=== PATIENT | female | born 1955 | race Caucasian/White ===

== ENCOUNTER 2024-08-05 11:33 | Outpatient (CLI) | payer MEDICARE, OTHER ==
[2024-08-05] MEDS ORDERED: barium sulfate 340gm for oral suspension 1 BOTTLE SUSP.RECON PO ONE (14:00)
== END 2024-08-05 23:59 | disposition home or self-care (01) ==
LOC: RAD 11:33
PROVIDERS: ATTEND Surgery
DX: K44.9 Diaphragmatic hernia without obstruction or gangrene (principal); K21.9 Gastro-esophageal reflux disease without esophagitis; R13.10 Dysphagia, unspecified
CPT/HCPCS: 74220

== ENCOUNTER 2024-10-21 06:53 | Day surgery (SDC) | payer MEDICARE, OTHER ==
[~2024-10-21 06:53] MED LIST: ALPH600C3 PO; CHOL10CA2 PO; CYAN250010 PO; LOSA25TA41 PO; METO-384 PO; OMEP20CA16 PO; QUET50TA24 PO; ROSU20TA98; ROSU40TA89 PO; TIRZ5PEN; UBID10CA4 PO
[2024-10-21 07:30] VITALS: BP 122/77; PULSE 62; RESP 14; TEMP 98
[2024-10-21] MEDS ORDERED: ringers solution, lacted 1,000 ML IV SCH (07:35)
[2024-10-21] MEDS ORDERED: ondansetron/PF 4mg/2ml inj IV PRN (07:35)
[2024-10-21] MEDS ORDERED: morphine 2 MG/ML inj. syringe IV PRN (07:35)
[2024-10-21] MEDS ORDERED: simethicone 40mg/0.6ml oral drops 30ml ONE (08:57)
[2024-10-21] MEDS ORDERED: propofol 10mg/ml 20ml vial IV ONE (08:57)
[2024-10-21 09:31] VITALS: BP 95/56; PULSE 70; RESP 16; O2SAT 98
[2024-10-21 09:40] VITALS: BP 109/68; PULSE 59; RESP 13; O2SAT 100
[2024-10-21 09:50] VITALS: BP 121/77; PULSE 57; RESP 18; O2SAT 97
[2024-10-21 10:00] VITALS: BP 123/75; PULSE 56; RESP 15; O2SAT 98
== END 2024-10-21 10:11 | disposition home or self-care (01) ==
LOC: GI LAB 06:53
PROVIDERS: ATTEND Surgery
DX: K44.9 Diaphragmatic hernia without obstruction or gangrene (principal); K22.70 Barrett's esophagus without dysplasia; K29.70 Gastritis, unspecified, without bleeding; I10 Essential (primary) hypertension; K21.9 Gastro-esophageal reflux disease without esophagitis; Z79.899 Other long term (current) drug therapy; Z98.890 Other specified postprocedural states
CPT/HCPCS: 43239; 88305; 93005; A4618; A4620; J2270; J2405; J2704; J7030; J7120; Z7506; Z7512; Z7610

== ENCOUNTER 2024-10-30 11:10 | Observation (INO) | payer MEDICARE, OTHER ==
[2024-10-24 11:33] LABS: BASOPHILS # (AUTO) 0.1 X10'3 (0-0.2); BASOPHILS % (AUTO) 0.9 % (0-1); EOSINOPHILS # (AUTO) 0.2 X10'3 (0-0.9); EOSINOPHILS % (AUTO) 2.5 % (0-6); LYMPHOCYTES # (AUTO) 2.6 X10'3 (1.1-4.8); LYMPHOCYTES % (AUTO) 35.6 % (21-51); MEAN CORPUSCULAR HEMOGLOBIN 30.3 PG (27.0-31.0); MEAN CORPUSCULAR HGB CONC 33.4 g/dL (33.0-36.5); MEAN CORPUSCULAR VOLUME 90.7 FL (78-98); MONOCYTES # (AUTO) 0.6 X10'3 (0-0.9); MONOCYTES % (AUTO) 7.9 % (2-12); NEUTROPHILS # (AUTO) 3.8 X10'3 (1.8-7.7); NEUTROPHILS % (AUTO) 53.1 % (42-75); PRE OP HEMATOCRIT 44.5 % (35.0-45.0); PRE OP HEMOGLOBIN 14.8 g/dL (12.0-16.0); PRE OP PLATELET COUNT 224 X10'3 (140-440); PRE OP WHITE BLOOD COUNT 7.2 10'3 (4.8-10.8)
[2024-10-24 11:49] LABS: ALBUMIN/GLOBULIN RATIO 1.1 (1.1-1.5); ALKALINE PHOSPHATASE 56 IU/L (46-116); BLOOD UREA NITROGEN 14 MG/DL (7-18); BUN/CREATININE RATIO 18.7 (10.0-20.0); CALCIUM 9.4 MG/DL (8.5-10.1); CHLORIDE 107 MMOL/L (99-107); CREATININE 0.75 MG/DL (0.40-0.90); PRE OP ALT 38 U/L (30-65); PRE OP ANION GAP 4 (8-16); PRE OP AST 17 U/L (10-37); PRE OP BILIRUB, TOTAL 0.5 MG/DL (0.0-1.0); PRE OP GLUCOSE 102 MG/DL (70-104); PRE OP POTASSIUM 4.3 MMOL/L (3.4-5.1); PRE OP SODIUM 143 MMOL/L (135-145); TOTAL CARBON DIOXIDE 31.6 MMOL/L (24-32); TOTAL PROTEIN 7.8 G/DL (6.4-8.2); eGFR 77 ML/MIN
[~2024-10-30] VITALS: Ht 170.2 cm; Wt 92.0 kg
[2024-10-30] VITALS (27 sets, daily range): BP systolic 90–152; BP diastolic 53–97; PULSE 60–97; RESP 10–17; TEMP 97.6–98; O2SAT 91–98
[2024-10-30] MEDS: DOCUMENT DATE & TIME OF BETA-BLOCKER PO ONE (05:30)
[2024-10-30] MEDS: ceFAZolin 2gm in dextrose, iso 50 ML IV ONE (05:30)
[~2024-10-30 11:10] MED LIST changes: -ROSU20TA98; -TIRZ5PEN
[2024-10-30] MEDS: ringers solution, lacted 1,000 ML IV SCH (11:48)
[2024-10-30] MEDS: famotidine 20mg tablet PO ONE (11:48)
[2024-10-30] MEDS ORDERED: LIDOcaine 2% (20mg/ml) 5ml vial ONE (13:19)
[2024-10-30] MEDS ORDERED: midazolam 1 mg/ML 2ml injection ONE (13:19)
[2024-10-30] MEDS ORDERED: fentaNYL /PF 50mcg/ml 5ml ampule ONE (13:19)
[2024-10-30] MEDS ORDERED: propofol inj 20 ML IV ONE (13:19)
[2024-10-30] MEDS ORDERED: rocuronium 10mg/ml inj IV ONE (13:21)
[2024-10-30] MEDS ORDERED: acetaminophen 1,000mg/100ml IV 100 ML IV ONE (13:22)
[2024-10-30] MEDS ORDERED: LIDOcaine 1% 30ml preserv. free vial ONE (13:37)
[2024-10-30] MEDS ORDERED: BUPIVAcaine 2.5mg/ml inj 50ml vial (contains preservative) ONE (13:37)
[2024-10-30] MEDS ORDERED: sevoflurane 250ml liquid IH ONE (13:44)
[2024-10-30] MEDS ORDERED: ceFAZolin 1000mg inj ONE ×2 (14:11→14:12)
[2024-10-30] MEDS: BUPIVAcaine/PF 2.5 mg/ml (0.25%) 30ml vial IJ ONE (14:16)
[2024-10-30] MEDS ORDERED: proCHLORperazine 10 MG/2 ml inj IV PRN (14:40)
[2024-10-30] MEDS ORDERED: ondansetron/PF 4mg/2ml inj IV PRN (14:40)
[2024-10-30] MEDS ORDERED: ringers solution, lacted 1,000 ML IV SCH (14:40)
[2024-10-30] MEDS ORDERED: meperidine/PF 25mg/ml syringe IV PRN ×3 (14:40)
[2024-10-30] MEDS ORDERED: enalaprilat 1.25mg/ml 2ml vial IV PRN (14:40)
[2024-10-30] MEDS: fentaNYL/PF 50MCG/1 ML 2ML syringe IV ONE (14:40)
[2024-10-30] MEDS ORDERED: labetalol 20mg/4ml (5mg/ml) syringe IV PRN (14:40)
[2024-10-30] MEDS ORDERED: glycopyrrolate 0.2mg/ml inj ONE (15:49)
[2024-10-30] MEDS ORDERED: oxyCODONE/APAP 5-325mg tablet PO PRN (16:15)
[2024-10-30] MEDS ORDERED: naloxone 0.4 mg/ml inj IV PRN ×2 (16:15→17:35)
[2024-10-30] MEDS ORDERED: PER5325T PO (16:21)
[2024-10-30] MEDS: morphine 2 MG/ML inj. syringe IV PRN (16:22)
[2024-10-30] MEDS: morphine 4 MG/ML inj SYRINge IV PRN (17:09)
[2024-10-30] MEDS ORDERED: meperidine/PF 100mg/ml syringe IV PRN (17:25)
[2024-10-30] MEDS: meperidine/PF 100mg/ml syringe IV PRN ×2 (17:30→17:53)
[2024-10-30] MEDS: normal saline 1000ml 1,000 ML IV SCH (17:57)
[2024-10-30] MEDS: HYDROmorph/NS 0.2 mg/ml PCA 100 ML IV SCH (18:39)
[2024-10-30] MEDS: heparin, porcine 5000 units/ml vial SQ SCH (20:00)
[2024-10-30] MEDS: QUEtiapine 25mg tablet PO SCH (22:32)
[2024-10-30] MEDS: metoprolol succinate 25mg (24-HOUR) SR. Tablet PO SCH (22:33)
[2024-10-30] MEDS: losartan 25mg tablet PO SCH (22:33)
[2024-10-30] MEDS: atorvastatin 20mg tablet PO SCH (22:33)
[2024-10-31 02:00] VITALS: BP 110/64; PULSE 82; RESP 16; TEMP 97.5; O2SAT 95
[2024-10-31 06:00] VITALS: BP 115/64; PULSE 72; RESP 16; TEMP 97.7; O2SAT 94
[2024-10-31] MEDS: oxyCODONE/APAP 5-325mg tablet PO ONE ×2 (07:49→08:27)
[2024-10-31 07:57] VITALS: RESP 16; O2SAT 97
[2024-10-31] MEDS ORDERED: oxyCODONE/APAP 5-325mg tablet PO PRN (08:20)
[2024-10-31] MEDS: PCA WASTE DOCUMENTATION 1 MG ML MC SCH (08:28)
[2024-10-31 08:49] VITALS: RESP 16
== END 2024-10-31 11:06 | disposition home or self-care (01) ==
LOC: PAS 11:10 → SUR 3N 17:37
PROVIDERS: ADMIT Surgery; ATTEND Surgery
DX: K44.9 Diaphragmatic hernia without obstruction or gangrene (principal); Z79.899 Other long term (current) drug therapy; Z88.5 Allergy status to narcotic agent
CPT/HCPCS: 36415; 43282; 71045; 80053; 82948; 85025; 87081; 96372; C1781; G0378; J0131; J0690; J1100; J1171; J1644; J2003; J2175; J2250; J2270; J2405; J2704; J2710; J3010; J3490; J7030; J7120; A4615; A4618